=== PATIENT | female | born 1970 | race Two or more races ===

== ENCOUNTER 2017-09-05 21:52 | Emergency (ER) | payer MEDICAID ==
[~2017-09-05] VITALS: Ht 157.5 cm; Wt 68.0 kg
[2017-09-05 22:05] VITALS: BP 140/85
[2017-09-05] MEDS ORDERED: TETANUS-DIPTH-ACEL PERTUSSIS 0.5ML SYRG IM ONE (22:45)
== END 2017-09-05 23:10 | disposition home or self-care (01) ==
LOC: ER 21:52
DX: S61.210A Laceration without foreign body of right index finger without damage to nail, initial encounter (principal); X58.XXXA Exposure to other specified factors, initial encounter; Y93.89 Activity, other specified; Y92.89 Other specified places as the place of occurrence of the external cause; Y99.8 Other external cause status; Z23 Encounter for immunization
CPT/HCPCS: 12001; 90471; 90715